=== PATIENT | male | born 1935 | race Caucasian/White ===

== ENCOUNTER 2019-03-13 19:49 | Emergency (ER) | payer OTHER ==
[2019-03-13 20:34] LABS: #Basophils 0.1 thou/uL (0.0-0.2); #Eosinphils 0.4 thou/uL (0.0-0.7); #Lymphocytes 1.1 thou/uL (1.20-3.40); #Monocytes 0.7 thou/uL (0.11-0.59); #Neutrophils 4.5 thou/uL (1.40-6.50); %Eosinophils 5.8 % (0.0-10.0); %Lymphocytes 16.7 % (21.0-51.0); %Monocytes 10.5 % (0.0-10.0); Hemoglobin 13.7 g/dL (14.0-18.0); Mean Corpuscular HGB CONC 31.1 g/dL (32.0-36.0); Mean Corpuscular Hemoglobin 29.6 pg (27.0-31.0); Mean Corpuscular Volume 95.1 fL (78.0-98.0); Mean Platelet Volume 7.9 fL (7.4-10.4); Platelet Count 289 thou/uL (130-400); RBC Distribution Width 12.3 % (11.5-14.5); Red Blood Cell (RBC) Count 4.63 mill/uL (4.70-6.10); White Blood Cell (WBC) Count 6.8 thou/uL (4.8-10.8)
[2019-03-13 20:47] LABS: Lactic Acid 1.5 mmol/L (0.5-2.2)
--- NOTE | 2019-03-13 20:49 | CT ---
CT Brain WO Con History: Altered mental status Comparison: None. Findings: High-grade chronic microvascular ischemic changes in the subcortical and deep white matter. No acute territorial infarct or hemorrhage. Multiple basal ganglia infarctions. There is hypodensity of the right putamen and globus pallidus which is age indeterminant. No acute hemorrhage. No midline shift. Calvarium is intact. Impression: 1. Hypodensity of the right putamen and globus pallidus age-indeterminate for infarction given lack o f comparison exams. 2. Extensive chronic microvascular ischemic changes with old lacunar infarctions. 3. No acute hemorrhage.
[2019-03-13 20:54] LABS: ALT (SGPT) 17 U/L (8-55); AST (SGOT) 18 U/L (5-34); Albumin 4.2 g/dL (3.4-4.8); Alkaline Phosphatase 129 U/L (40-110); Anion Gap 13 mmol/L (10-20); BUN (Urea Nitrogen) 12 mg/dL (8.4-25.7); Bilirubin, Total 0.5 mg/dL (0.2-1.2); Calc. Creatinine Clearance 0 mL/min (70-130); Calcium 9.2 mg/dL (7.8-10.44); Carbon Dioxide 26 mmol/L (23-31); Chloride 105 mmol/L (98-107); Estimated GFR-MDRD Greater than 90; Globulin 3.8 g/dL (2.4-3.5); Glucose 98 mg/dL (83-110); Potassium 4.4 mmol/L (3.5-5.1); Sodium 140 mmol/L (136-145)
[2019-03-13 21:26] LABS: Bilirubin Negative (Negative); Blood, Urine Trace (Negative); Clarity Clear (Clear); Glucose, Urine (Dipstick) Negative (Negative); Leukocyte Small (Negative); Nitrite Negative (Negative); Protein, Urine (Dipstick) Negative (Neg-Trace); Urobilinogen 0.2 mg/dL (Less than 2)
[2019-03-13 21:33] LABS: Squamous Epithelial 0-3 HPF (0-3)
[2019-03-13 21:34] LABS: Bacteria/HPF Rare-Few HPF (None Seen)
[2019-03-13] MEDS ORDERED: cefTRIAXone\\ROCEPHIN 1 GM VIAL ONE (22:04)
[2019-03-13] MEDS ORDERED: Aspirin Chewable 81 MG TAB ONE ×2 (22:04→22:07)
== END 2019-03-13 23:50 | disposition short-term general hospital (02) ==
LOC: NAV ERS 19:49
DX: N39.0 Urinary tract infection, site not specified (principal); R26.81 Unsteadiness on feet; R41.82 Altered mental status, unspecified; K21.9 Gastro-esophageal reflux disease without esophagitis
CPT/HCPCS: 36416; 70450; 80053; 81003; 81015; 83605; 84484; 85025; 87086; 93005; 94760; 96365; J0696